=== PATIENT | male | born 1985 | race African-American/Black ===

== ENCOUNTER 2016-12-27 17:54 | Inpatient (IN) | payer OTHER ==
[~2016-12-27] VITALS: Ht 177.8 cm; Wt 67.1 kg
[2016-12-27] MEDS ORDERED: DAILY VALUE1 EACH PO (18:26)
[2016-12-27 18:55] LABS: HEMATOCRIT 27.1 % (38.0-50.0); MCH 28.9 PG (29.0-34.0); MCHC 33.2 G/DL (30.0-36.0); MCV 87.1 FL (86-99); NRBC (%) 0.9 /100 WBC (0-0); PLATELET COUNT 70 K/uL (156-360); RBC DIS.WIDTH-CV 23.6 % (11.8-14.6); RBC DIS.WIDTH-SD 73.5 % (39-53); RED BLOOD COUNT 3.11 M/uL (4.00-5.50); WHITE BLOOD COUNT 5.3 K/uL (4.1-10.2)
[2016-12-27 19:04] LABS: CHLORIDE 95 mEq/L (99-109); POTASSIUM 3.1 mEq/L (3.7-5.4); SODIUM 142 mEq/L (136-147)
[2016-12-27 19:06] LABS: GLUCOSE 110 mg/dL (70-99)
[2016-12-27 19:07] LABS: ANION GAP 19 MEQ/L (2-14)
[2016-12-27 19:08] LABS: TOTAL BILIRUBIN 1.3 mg/dL (0.0-1.0)
[2016-12-27 19:09] LABS: ALKALINE PHOSPHATASE 644 IU/L (3-129)
[2016-12-27 19:10] LABS: GFR ESTIMATE (CALCULATED) > 59 mL/min/
[2016-12-27 19:11] LABS: UREA NITROGEN (BUN) 2 mg/dL (9-23)
[2016-12-27 19:41] LABS: TROP-I INTERPRETATION NEGATIVE; TROPONIN-I < 0.01 ng/mL (0.0-0.30)
[2016-12-27 19:46] LABS: MAGNESIUM 1.2 mg/dL (1.3-2.7)
[2016-12-27 19:50] LABS: SERUM ETHYL ALCOHOL > 495 mg/dL
[2016-12-27] MEDS ORDERED: MULTI-VITAMIN1 EAC3 PO (21:38)
[2016-12-27] MEDS ORDERED: MULTIVITAMIN1 EAC2 PO (21:40)
[2016-12-27 23:50] VITALS: BP 121/82
[2016-12-27 23:51] LABS: AMPHETAMINES QUANT VALUE 0 NG/ML; BARBITUATES QUANT VALUE 0 NG/ML; BENZODIAZEPINES QUANT VALUE 0 NG/ML; BENZODIAZEPINES, URINE SCREEN Negative (200 ng/mL); MARIJUANA QUANT VALUE 0 NG/ML; OPIATES QUANTITATIVE VALUE 0 NG/ML; PHENCYCLIDINE QUANT VALUE 0 NG/ML
[2016-12-27 23:51] LABS: D-DIMER ELISA > 4.00 mg/L FEU (< 0.57); INTER. NORMALIZED RATIO 1.1; PROTHROMBIN TIME 11.4 (9.2-11.2); PTT 30.2 (25-32)
[2016-12-28 02:42] LABS: TROP-I INTERPRETATION NEGATIVE; TROPONIN-I < 0.01 ng/mL (0.0-0.30)
[2016-12-28 03:30] VITALS: BP 123/70
[2016-12-28 07:59] VITALS: BP 114/73
[2016-12-28 10:08] LABS: HEMATOCRIT 23.9 % (38.0-50.0); MCH 29.1 PG (29.0-34.0); MCHC 32.2 G/DL (30.0-36.0); MCV 90.2 FL (86-99); MEAN PLAT.VOLUME 10.1 uM^3 (9.0-12.4); NRBC (%) 0.3 /100 WBC (0-0); PLATELET COUNT 71 K/uL (156-360); RBC DIS.WIDTH-CV 24.7 % (11.8-14.6); RBC DIS.WIDTH-SD 79.4 % (39-53); RED BLOOD COUNT 2.65 M/uL (4.00-5.50)
[2016-12-28 10:09] LABS: WHITE BLOOD COUNT 7.4 K/uL (4.1-10.2)
[2016-12-28 10:33] LABS: ALKALINE PHOSPHATASE 584 IU/L (3-129); ANION GAP 17 MEQ/L (2-14); CHLORIDE 90 MEQ/L (99-109); GFR ESTIMATE (CALCULATED) > 59 mL/min/; GLUCOSE 149 mg/dL (70-99); POTASSIUM 3.2 MEQ/L (3.7-5.4); SAMPLE HEMOLYSIS CHECK 0; SAMPLE ICTERIC CHECK 0; SAMPLE LIPEMIA CHECK 0; TOTAL BILIRUBIN 1.1 MG/DL (0.0-1.0); UREA NITROGEN (BUN) 2 mg/dL (9-23)
[2016-12-28 10:34] LABS: SODIUM 133 MEQ/L (136-147)
[2016-12-28 10:37] LABS: TROP-I INTERPRETATION NEGATIVE; TROPONIN-I 0.01 ng/mL (0.0-0.30)
[2016-12-28 12:05] VITALS: BP 118/75
[2016-12-28 12:42] LABS: MAGNESIUM 1.4 mg/dl (1.3-2.7)
[2016-12-28 15:34] VITALS: BP 122/68
[2016-12-28 20:20] VITALS: BP 111/70
[2016-12-28 23:24] VITALS: BP 110/72
[2016-12-29] MEDS ORDERED: LEVAQUIN750 MG PO (08:44)
[2016-12-29] MEDS ORDERED: ZITHROMAX Z-PA250 MG PO (08:44)
[2016-12-29 10:25] LABS: HBSG INDEX 0.21
[2016-12-29 10:26] LABS: ANTI-HEPATITIS A VIRUS (IGM) Nonreactive; HAV INDEX 0.19; HPCA INDEX 0.27
[2016-12-29 10:27] LABS: ANTI-HEPATITIS B CORE (IGM) Nonreactive; HBC IgM INDEX 0.05
[2016-12-29 10:28] LABS: HIV INDEX 0.07; HIV-1/2 AB/AG COMBO Nonreactive
== END 2016-12-29 04:19 | disposition left against medical advice (07) | DRG 194 ==
LOC: EME 17:54 → 4EAST 22:22 → EDOF 22:22 → 4EAST 23:51
PROVIDERS: Emergency Medicine; Internal Medicine; Physician Assistant
DX: J18.9 Pneumonia, unspecified organism (principal); F10.229 Alcohol dependence with intoxication, unspecified; F10.239 Alcohol dependence with withdrawal, unspecified; Y90.8 Blood alcohol level of 240 mg/100 ml or more; F17.210 Nicotine dependence, cigarettes, uncomplicated; R63.4 Abnormal weight loss; Z68.21 Body mass index [BMI] 21.0-21.9, adult; F41.9 Anxiety disorder, unspecified; F32.9 Major depressive disorder, single episode, unspecified; D61.818 Other pancytopenia; R79.89 Other specified abnormal findings of blood chemistry; K70.10 Alcoholic hepatitis without ascites; M71.22 Synovial cyst of popliteal space [Baker], left knee; L40.8 Other psoriasis; E87.2 Acidosis; E87.1 Hypo-osmolality and hyponatremia; E87.6 Hypokalemia; D69.6 Thrombocytopenia, unspecified; K70.11 Alcoholic hepatitis with ascites; E83.42 Hypomagnesemia; E46 Unspecified protein-calorie malnutrition
CPT/HCPCS: 71010; 71275; 74176; 80053; 80074; 80076; 80306 90; 82140; 82272; 82607; 82746; 83605; 83735; 84425 90; 84443; 84484; 85027; 85379; 85610; 85730; 86703; 87040; 87070; 87205; 87449; 87641; 93005; 93970; 99281; 99285; C9113; G0480; J0456; J0696; J2060; J2270; J2543; J3411; J3475; J3480; J7030; J7050; J7120; S0028

== ENCOUNTER 2016-12-29 06:24 | Emergency (ER) | payer OTHER ==
[~2016-12-29] VITALS: Ht 177.8 cm; Wt 70.5 kg
[~2016-12-29 06:24] MED LIST: DAILY VALUE1 EACH PO; MULTI-VITAMIN1 EAC3 PO; MULTIVITAMIN1 EAC2 PO
[2016-12-29 07:52] LABS: HEMATOCRIT 21.4 % (38.0-50.0); MCH 29.3 PG (29.0-34.0); MCHC 31.8 G/DL (30.0-36.0); MCV 92.2 FL (86-99); MEAN PLAT.VOLUME 10.8 uM^3 (9.0-12.4); NRBC (%) 0.6 /100 WBC (0-0); PLATELET COUNT 69 K/uL (156-360); RBC DIS.WIDTH-CV 24.6 % (11.8-14.6); RBC DIS.WIDTH-SD 80.4 % (39-53); RED BLOOD COUNT 2.32 M/uL (4.00-5.50); WHITE BLOOD COUNT 5.4 K/uL (4.1-10.2)
[2016-12-29 08:11] LABS: ALKALINE PHOSPHATASE 471 IU/L (3-129); ANION GAP 12 MEQ/L (2-14); GFR ESTIMATE (CALCULATED) > 59 mL/min/; POTASSIUM 3.3 MEQ/L (3.7-5.4); SAMPLE HEMOLYSIS CHECK 0; SAMPLE ICTERIC CHECK 0; SAMPLE LIPEMIA CHECK 0; SERUM ETHYL ALCOHOL < 10 mg/dL; UREA NITROGEN (BUN) 2 mg/dL (9-23)
[2016-12-29 08:12] LABS: CHLORIDE 102 MEQ/L (99-109); GLUCOSE 93 mg/dL (70-99); SODIUM 142 MEQ/L (136-147)
[2016-12-29 08:23] LABS: EOSINOPHIL (%) 0.4 % (0-5); IMMATURE GRANULOCYTE (%) 0.9 % (0.0-0.7); IMMATURE GRANULOCYTE COUNT 0.1 K/uL; INSTRUMENT ABS NEUTROPHIL CT 4.2 K/uL; LYMPHOCYTE COUNT 0.8 K/uL (1.0-2.8); MONOCYTE (%) 6.3 % (3-12); MONOCYTE COUNT 0.3 K/uL (0-0.8); NEUTROPHIL (%) 77.3 % (45-76); NEUTROPHIL COUNT 4.2 K/uL (1.8-6.4)
[2016-12-29] MEDS ORDERED: ZITHROMAX Z-PA250 MG PO (08:44)
[2016-12-29] MEDS ORDERED: LEVAQUIN750 MG PO (08:44)
[2016-12-29 09:07] VITALS: BP 122/79
== END 2016-12-29 09:09 | disposition left against medical advice (07) ==
LOC: EME 06:24
PROVIDERS: Emergency Medicine
DX: J18.9 Pneumonia, unspecified organism (principal); D64.9 Anemia, unspecified; E86.0 Dehydration; F10.20 Alcohol dependence, uncomplicated; F17.200 Nicotine dependence, unspecified, uncomplicated
CPT/HCPCS: 80053; 85025; 93005; 99281; 99285; G0480; J2543; J7030

== ENCOUNTER 2016-12-29 10:42 | Emergency (ER) | payer OTHER ==
[~2016-12-29] VITALS: Ht 177.8 cm; Wt 72.3 kg
[~2016-12-29 10:42] MED LIST changes: +LEVAQUIN750 MG PO; +ZITHROMAX Z-PA250 MG PO
[2016-12-29 11:59] VITALS: BP 118/78
== END 2016-12-29 11:50 | disposition left against medical advice (07) ==
LOC: EME 10:42
DX: J18.9 Pneumonia, unspecified organism (principal); D64.9 Anemia, unspecified; F10.20 Alcohol dependence, uncomplicated; F17.200 Nicotine dependence, unspecified, uncomplicated
CPT/HCPCS: 99281; 99283

== ENCOUNTER 2016-12-31 19:24 | Inpatient (IN) | payer OTHER ==
[~2016-12-31] VITALS: Ht 177.8 cm; Wt 64.5 kg
[2016-12-31 19:47] LABS: HEMATOCRIT 22.7 % (38.0-50.0); MCH 29.7 PG (29.0-34.0); MCHC 31.3 G/DL (30.0-36.0); MEAN PLAT.VOLUME 8.8 uM^3 (9.0-12.4); NRBC (%) 0.8 /100 WBC (0-0); PLATELET COUNT 114 K/uL (156-360); RBC DIS.WIDTH-CV 27.6 % (11.8-14.6); RED BLOOD COUNT 2.39 M/uL (4.00-5.50); WHITE BLOOD COUNT 4.8 K/uL (4.1-10.2)
[2016-12-31 19:58] LABS: CHLORIDE 104 mEq/L (99-109); POTASSIUM 3.2 mEq/L (3.7-5.4); SODIUM 144 mEq/L (136-147)
[2016-12-31 20:00] LABS: GLUCOSE 115 mg/dL (70-99)
[2016-12-31 20:01] LABS: ANION GAP 15 MEQ/L (2-14)
[2016-12-31 20:04] LABS: GFR ESTIMATE (CALCULATED) > 59 mL/min/
[2016-12-31 20:05] LABS: UREA NITROGEN (BUN) 2 mg/dL (9-23)
[2016-12-31 20:09] LABS: ALKALINE PHOSPHATASE 417 IU/L (3-129); TOTAL BILIRUBIN 0.8 mg/dL (0.0-1.0)
[2016-12-31 21:20] LABS: BILIRUBIN NEGATIVE; BLOOD NEGATIVE; COLOR YELLOW ((YELLOW)); GLUCOSE (STRIP) NEGATIVE; KETONES NEGATIVE; LEUKOCYTES NEGATIVE; NITRITE NEGATIVE; PROTEIN (STRIP) NEGATIVE; SPECIFIC GRAVITY 1.011 (1.000-1.030); UROBILINOGEN 0.2 MG/DL (0.2-1.0)
[2016-12-31 21:24] LABS: ADD MIUA? NO; UCUL ADDED? NO
[2016-12-31 23:32] LABS: SERUM ETHYL ALCOHOL < 10 mg/dL
[2016-12-31 23:53] VITALS: BP 129/82
[2017-01-01] VITALS (15 sets, daily range): BP systolic 99–157; BP diastolic 54–101
[2017-01-01 00:55] LABS: MAGNESIUM 0.8 mg/dL (1.3-2.7)
[2017-01-01 07:35] LABS: ANION GAP 13 MEQ/L (2-14); CHLORIDE 102 MEQ/L (99-109); GFR ESTIMATE (CALCULATED) > 59 mL/min/; GLUCOSE 92 mg/dL (70-99); MAGNESIUM 1.6 mg/dl (1.3-2.7); POTASSIUM 2.9 MEQ/L (3.7-5.4); SAMPLE HEMOLYSIS CHECK 0; SAMPLE ICTERIC CHECK 0; SAMPLE LIPEMIA CHECK 0; SODIUM 142 MEQ/L (136-147); UREA NITROGEN (BUN) 2 mg/dL (9-23)
[2017-01-01 07:38] LABS: EOSINOPHIL COUNT 0.1 K/uL (0-0.3); HEMATOCRIT 29.8 % (38.0-50.0); IMMATURE GRANULOCYTE (%) 1.7 % (0.0-0.7); IMMATURE GRANULOCYTE COUNT 0.1 K/uL; INSTRUMENT ABS NEUTROPHIL CT 2.5 K/uL; LYMPHOCYTE COUNT 1.5 K/uL (1.0-2.8); MCH 30.2 PG (29.0-34.0); MCHC 31.9 G/DL (30.0-36.0); MCV 94.6 FL (86-99); MEAN PLAT.VOLUME 9.3 uM^3 (9.0-12.4); MONOCYTE (%) 14.9 % (3-12); MONOCYTE COUNT 0.7 K/uL (0-0.8); NEUTROPHIL (%) 51.4 % (45-76); NEUTROPHIL COUNT 2.5 K/uL (1.8-6.4); NRBC (%) 1.2 /100 WBC (0-0); PLATELET COUNT 108 K/uL (156-360); RBC DIS.WIDTH-CV 23.9 % (11.8-14.6); RBC DIS.WIDTH-SD 74.6 % (39-53); WHITE BLOOD COUNT 4.8 K/uL (4.1-10.2)
[2017-01-01 07:43] LABS: RED BLOOD COUNT 3.15 M/uL (4.00-5.50)
[2017-01-01 08:48] LABS: INTERNAL CONTROL VALID? YES
[2017-01-01 14:00] LABS: METH RESISTANT S AUREUS PCR NEGATIVE (NEGATIVE)
[2017-01-01 14:09] LABS: PROBE CHECK PASS; SPECIMEN PROCESSING CONTROL PASS
[2017-01-01 16:07] LABS: ANION GAP 8 MEQ/L (2-14); CHLORIDE 108 MEQ/L (99-109); GFR ESTIMATE (CALCULATED) > 59 mL/min/; GLUCOSE 106 mg/dL (70-99); SAMPLE HEMOLYSIS CHECK 0; SAMPLE ICTERIC CHECK 0; SAMPLE LIPEMIA CHECK 0; SODIUM 145 MEQ/L (136-147); UREA NITROGEN (BUN) 2 mg/dL (9-23)
[2017-01-01 16:08] LABS: POTASSIUM 3.7 MEQ/L (3.7-5.4)
[2017-01-02 00:10] VITALS: BP 128/86
[2017-01-02 04:20] VITALS: BP 126/78
[2017-01-02 05:46] LABS: HEMATOCRIT 28.8 % (38.0-50.0); IMM.RETIC FRACTION 29.9 % (3-19); MCH 31.3 PG (29.0-34.0); MCHC 31.9 G/DL (30.0-36.0); MEAN PLAT.VOLUME 9.4 uM^3 (9.0-12.4); NRBC (%) 0.8 /100 WBC (0-0); PLATELET COUNT 115 K/uL (156-360); RBC DIS.WIDTH-CV 25.7 % (11.8-14.6); RBC DIS.WIDTH-SD 86.5 % (39-53); RED BLOOD COUNT 2.94 M/uL (4.00-5.50); RETIC HGB EQUIVALENT 34.8 (28-36); RETICULOCYTE COUNT 6.6 % (0.5-1.8)
[2017-01-02 08:25] LABS: ANION GAP 10 MEQ/L (2-14); CHLORIDE 113 MEQ/L (99-109); DIRECT BILIRUBIN 0.2 mg/dL (0.0-0.3); FERRITIN 928 NG/ML (22-322); GFR ESTIMATE (CALCULATED) > 59 mL/min/; GLUCOSE 118 mg/dL (70-99); IRON 46 MCG/DL (35-150); LACTATE DEHYDROGENASE 405 IU/L (20-246); POTASSIUM 3.8 MEQ/L (3.7-5.4); SAMPLE HEMOLYSIS CHECK 0; SAMPLE ICTERIC CHECK 0; SAMPLE LIPEMIA CHECK 0; SODIUM 147 MEQ/L (136-147); UREA NITROGEN (BUN) 2 mg/dL (9-23)
[2017-01-02 08:27] LABS: ALKALINE PHOSPHATASE 280 IU/L (3-129); TOTAL BILIRUBIN 0.7 MG/DL (0.0-1.0)
[2017-01-02 08:36] VITALS: BP 164/86
[2017-01-02 15:37] VITALS: BP 132/93
[2017-01-02 20:00] VITALS: BP 149/97
[2017-01-03] VITALS: BP 171/109
[2017-01-03 04:00] VITALS: BP 163/96
[2017-01-03 07:35] LABS: HEMATOCRIT 34.6 % (38.0-50.0); MCH 30.4 PG (29.0-34.0); MCHC 31.2 G/DL (30.0-36.0); MCV 97.5 FL (86-99); MEAN PLAT.VOLUME 9.9 uM^3 (9.0-12.4); NRBC (%) 0.5 /100 WBC (0-0); PLATELET COUNT 119 K/uL (156-360); RBC DIS.WIDTH-CV 26.2 % (11.8-14.6); RBC DIS.WIDTH-SD 91.3 % (39-53)
[2017-01-03 07:45] LABS: RED BLOOD COUNT 3.55 M/uL (4.00-5.50)
[2017-01-03 08:00] VITALS: BP 130/83
[2017-01-03 08:24] LABS: ANION GAP 13 MEQ/L (2-14); CHLORIDE 108 MEQ/L (99-109); GFR ESTIMATE (CALCULATED) > 59 mL/min/; GLUCOSE 93 mg/dL (70-99); POTASSIUM 3.7 MEQ/L (3.7-5.4); SAMPLE HEMOLYSIS CHECK 0; SAMPLE ICTERIC CHECK 0; SAMPLE LIPEMIA CHECK 0; SODIUM 149 MEQ/L (136-147); UREA NITROGEN (BUN) 3 mg/dL (9-23)
[2017-01-03] MEDS ORDERED: GABAPENTIN300 MG PO (11:25)
[2017-01-03] MEDS ORDERED: AUGMENTIN875 MG PO (11:25)
[2017-01-03] MEDS ORDERED: PANTOPRAZOLE SO40 MG PO (11:25)
[2017-01-03] MEDS ORDERED: FERROUS SULFAT325 MG PO (11:25)
[2017-01-03 11:27] VITALS: BP 122/80
== END 2017-01-03 13:20 | disposition home or self-care (01) | DRG 871 ==
LOC: EME 19:24 → EDOF 23:59 → 5SOUTH 23:59
PROVIDERS: Hospitalist; Nurse Practitioner Adult Health
PROC: 30233N1 Transfusion of Nonautologous Red Blood Cells into Peripheral Vein, Percutaneous Approach (ICD-10-PCS; principal; 2016-12-31)
DX: A41.9 Sepsis, unspecified organism (principal); J18.9 Pneumonia, unspecified organism; E87.1 Hypo-osmolality and hyponatremia; D69.6 Thrombocytopenia, unspecified; K70.10 Alcoholic hepatitis without ascites; F10.239 Alcohol dependence with withdrawal, unspecified; D64.9 Anemia, unspecified; K80.20 Calculus of gallbladder without cholecystitis without obstruction; R60.0 Localized edema; R10.13 Epigastric pain; F17.210 Nicotine dependence, cigarettes, uncomplicated; M71.22 Synovial cyst of popliteal space [Baker], left knee
CPT/HCPCS: 71010; 71020; 73610; 80048; 80048 91; 80053; 80076; 80202; 81003; 82607; 82728; 82746; 83010 90; 83540; 83615; 83735; 84466; 85025; 85027; 85045; 86900; 86901; 86920; 87040; 87070; 87205; 87449; 87641; 93005; 94010; 99202; 99281; 99283; 99285; C9113; G0480; J0456; J1956; J2060; J2543; J3370; J3411; J3475; J7030; J7050; P9016

== ENCOUNTER 2017-07-26 13:19 | Inpatient (IN) | payer SELFPAY ==
[~2017-07-26] VITALS: Ht 177.8 cm; Wt 68.5 kg
[~2017-07-26 13:19] MED LIST changes: +AUGMENTIN875 MG PO; +FERROUS SULFAT325 MG PO; +GABAPENTIN300 MG PO; +PANTOPRAZOLE SO40 MG PO
[2017-07-26 14:27] LABS: EOSINOPHIL (%) 0.2 % (0-5); HEMATOCRIT 33.8 % (38.0-50.0); IMMATURE GRANULOCYTE (%) 1.1 % (0.0-0.7); IMMATURE GRANULOCYTE COUNT 0.1 K/uL; INSTRUMENT ABS NEUTROPHIL CT 3.3 K/uL; LYMPHOCYTE COUNT 0.8 K/uL (1.0-2.8); MCH 31.7 PG (29.0-34.0); MCHC 37.3 G/DL (30.0-36.0); MCV 84.9 FL (86-99); MONOCYTE (%) 9.2 % (3-12); MONOCYTE COUNT 0.4 K/uL (0-0.8); NEUTROPHIL (%) 71.3 % (45-76); NEUTROPHIL COUNT 3.3 K/uL (1.8-6.4); RBC DIS.WIDTH-CV 13.5 % (11.8-14.6); RED BLOOD COUNT 3.98 M/uL (4.00-5.50); WHITE BLOOD COUNT 4.7 K/uL (4.1-10.2)
[2017-07-26 14:36] LABS: CHLORIDE 87 mEq/L (99-109); POTASSIUM 3.7 mEq/L (3.7-5.4); SODIUM 129 mEq/L (136-147)
[2017-07-26 14:39] LABS: GLUCOSE 142 mg/dL (70-99)
[2017-07-26 14:40] LABS: ANION GAP 22 MEQ/L (2-14); TOTAL BILIRUBIN 3.1 mg/dL (0.0-1.0)
[2017-07-26 14:41] LABS: SERUM ETHYL ALCOHOL < 10 mg/dL
[2017-07-26 14:42] LABS: ALKALINE PHOSPHATASE 305 IU/L (3-129); GFR ESTIMATE (CALCULATED) > 59 mL/min/
[2017-07-26 14:43] LABS: UREA NITROGEN (BUN) 7 mg/dL (9-23)
[2017-07-26 14:46] LABS: LIPASE 94 U/L (1.0-51.0)
[2017-07-26 15:08] LABS: ANISOCYTOSIS 2+; HYPOCHROMASIA 1+; IMM.PLATELET FRACTION 9.9 (1-7); MACROCYTES 2+; MEAN PLAT.VOLUME 12.5 uM^3 (9.0-12.4); PLAT.SUFFICIENCY VERY DECREASED; PLATELET COUNT 31 K/uL (156-360); SPHEROCYTES 1+
[2017-07-26 16:12] LABS: ADD MIUA? YES; BILIRUBIN NEGATIVE; BLOOD NEGATIVE; COLOR AMBER ((YELLOW)); GLUCOSE (STRIP) NEGATIVE; KETONES 5; LEUKOCYTES NEGATIVE; NITRITE NEGATIVE; PROTEIN (STRIP) 30; SPECIFIC GRAVITY 1.015 (1.000-1.030)
[2017-07-26 16:17] LABS: BACTERIA RARE /HPF; CALCIUM OXALATE CRYSTALS 1+ /HPF; EPITHELIAL CELLS NONE SEEN /HPF; MUCUS TRACE /LPF; RED BLOOD CELLS 0-5 /HPF (0-5); UCUL ADDED? YES
[2017-07-26 16:22] LABS: ADD MEDTOX COMMENT Y; AMPHETAMINE NEGATIVE (500 ng/mL); BARBITURATES NEGATIVE (200 ng/mL); BENZODIAZEPINES NEGATIVE (150 ng/mL); COCAINE NEGATIVE (150 ng/mL); INTERNAL CONTROLS VALID? YES; METHADONE NEGATIVE (200 ng/mL); METHAMPHETAMINE NEGATIVE (500 ng/mL); OPIATES (MORPHINE) PRESUMPTIVE POSITIVE (100 ng/mL); OXYCODONE NEGATIVE (100 ng/mL); PHENCYCLIDINE NEGATIVE (25 ng/mL); PROPOXYPHENE NEGATIVE (300 ng/mL); THC CANNABINOIDS NEGATIVE (50 ng/mL); TRICYCLIC ANTIDEPRESSANTS NEGATIVE (300 ng/mL)
[2017-07-26 16:52] LABS: INTER. NORMALIZED RATIO 1.2; PROTHROMBIN TIME 14.1 SEC (10.2-12.9)
[2017-07-26 16:56] LABS: MAGNESIUM 1.1 mg/dL (1.3-2.7)
[2017-07-26 18:20] VITALS: BP 138/55
[2017-07-26 19:30] VITALS: BP 130/74
[2017-07-26 23:27] VITALS: BP 115/66
[2017-07-27 01:03] LABS: POINT-OF-CARE METER ID UU13113725
[2017-07-27 04:49] VITALS: BP 122/81
[2017-07-27 05:57] LABS: POINT-OF-CARE METER ID UU13113774
[2017-07-27 06:15] LABS: ALKALINE PHOSPHATASE 225 IU/L (3-129); ANION GAP 10 MEQ/L (2-14); CHLORIDE 100 MEQ/L (99-109); GFR ESTIMATE (CALCULATED) > 59 mL/min/; LIPASE 109 U/L (1.0-51.0); MAGNESIUM 1.8 mg/dl (1.3-2.7); POTASSIUM 3.4 MEQ/L (3.7-5.4); SAMPLE HEMOLYSIS CHECK 1; SAMPLE ICTERIC CHECK 1; SAMPLE LIPEMIA CHECK 1; TOTAL BILIRUBIN 3.8 MG/DL (0.0-1.0); UREA NITROGEN (BUN) 4 mg/dL (9-23)
[2017-07-27 06:21] LABS: GLUCOSE 90 mg/dL (70-99); SODIUM 136 MEQ/L (136-147)
[2017-07-27 07:27] LABS: POTASSIUM 3.2 MEQ/L (3.7-5.4)
[2017-07-27 07:45] LABS: NO-CHARGE AST (GOT) 1063 IU/L (15-37)
[2017-07-27 08:04] VITALS: BP 111/69
[2017-07-27 11:19] LABS: POINT-OF-CARE METER ID UU13113774
[2017-07-27 11:30] VITALS: BP 118/80
[2017-07-27 11:36] LABS: HBSG INDEX 0.16
[2017-07-27 11:37] LABS: ANTI-HEPATITIS A VIRUS (IGM) Nonreactive; HAV INDEX 0.31; HPCA INDEX 0.22
[2017-07-27 11:38] LABS: ANTI-HEPATITIS B CORE (IGM) Nonreactive; HBC IgM INDEX 0.07
== END 2017-07-27 15:06 | disposition left against medical advice (07) | DRG 441 ==
LOC: EME 13:19 → EDOF 16:46 → 5EAST 16:46 → ENRESERV 16:47 → 5EAST 18:11
PROVIDERS: Emergency Medicine; Family Medicine
DX: K72.90 Hepatic failure, unspecified without coma (principal); K85.20 Alcohol induced acute pancreatitis without necrosis or infection; E72.20 Disorder of urea cycle metabolism, unspecified; K80.20 Calculus of gallbladder without cholecystitis without obstruction; F10.239 Alcohol dependence with withdrawal, unspecified; K70.11 Alcoholic hepatitis with ascites; F17.200 Nicotine dependence, unspecified, uncomplicated; E87.6 Hypokalemia; E83.42 Hypomagnesemia; E87.1 Hypo-osmolality and hyponatremia; E87.2 Acidosis; Z87.01 Personal history of pneumonia (recurrent)
CPT/HCPCS: 71010; 74176; 80053; 80074; 81003; 82140; 82948; 83605; 83690; 83735; 84100; 84999; 85025; 85610; 87040; 87086; 99281; 99285; C9113; G0480; J2060; J2270; J2405; J3411; J3475; J3480; J7030

== ENCOUNTER 2017-08-21 14:18 | Emergency (ER) | payer SELFPAY ==
[~2017-08-21] VITALS: Ht 177.8 cm; Wt 66.1 kg
[2017-08-21 17:54] LABS: BASOPHIL (%) 1.1 % (0-1); EOSINOPHIL (%) 0.3 % (0-5); HEMATOCRIT 33.7 % (38.0-50.0); HEMOGLOBIN 12.1 G/DL (12.5-16.6); IMMATURE GRANULOCYTE (%) 0.8 % (0.0-0.7); LYMPHOCYTE (%) 53.9 % (15-42); MCH 32.6 PG (29.0-34.0); MCHC 35.9 G/DL (30.0-36.0); MONOCYTE (%) 3.8 % (3-12); MONOCYTE COUNT 0.1 K/uL (0-0.8); NEUTROPHIL (%) 40.1 % (45-76); NEUTROPHIL COUNT 1.5 K/uL (1.8-6.4); RBC DIS.WIDTH-SD 62.5 % (39-53); RED BLOOD COUNT 3.71 M/uL (4.00-5.50); WHITE BLOOD COUNT 3.7 K/uL (4.1-10.2)
[2017-08-21 17:55] LABS: MCV 90.8 FL (86-99)
[2017-08-21 18:00] LABS: ALBUMIN 3.6 g/dL (3.2-4.8); CHLORIDE 101 mEq/L (99-109); POTASSIUM 3.7 mEq/L (3.7-5.4); SODIUM 144 mEq/L (136-147)
[2017-08-21 18:06] LABS: ALKALINE PHOSPHATASE 110 IU/L (3-129); CREATININE 0.7 mg/dL (0.6-1.3); GFR ESTIMATE (CALCULATED) > 59 mL/min/ (58.99-99999)
[2017-08-21 18:07] LABS: UREA NITROGEN (BUN) 9 mg/dL (9-23)
[2017-08-21 18:14] LABS: PLATELET COUNT 56 K/uL (156-360)
[2017-08-21 18:55] LABS: ALT (GPT) 61 IU/L (3-49); AST (GOT) 228 IU/L (2-34); GLUCOSE 96 mg/dL (70-99); MAGNESIUM 1.8 mg/dl (1.3-2.7); TOTAL BILIRUBIN 1.5 MG/DL (0.0-1.0); TOTAL PROTEIN 7.1 G/DL (6.4-8.3)
[2017-08-21] MEDS ORDERED: LIBRIUM25 MG PO (20:46)
[2017-08-21 21:24] VITALS: BP 130/90
== END 2017-08-21 21:24 | disposition home or self-care (01) ==
LOC: EME 14:18
PROVIDERS: Emergency Medicine
DX: F10.129 Alcohol abuse with intoxication, unspecified (principal); S06.340A Traumatic hemorrhage of right cerebrum without loss of consciousness, initial encounter; W01.10XA Fall on same level from slipping, tripping and stumbling with subsequent striking against unspecified object, initial encounter; K21.9 Gastro-esophageal reflux disease without esophagitis; R56.9 Unspecified convulsions; F17.200 Nicotine dependence, unspecified, uncomplicated
CPT/HCPCS: 70450; 80053; 82140; 83735; 85025; 99281; 99285; J2060